=== PATIENT | female | born 2005 | race Caucasian/White ===

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

== ENCOUNTER 2024-12-21 10:50 | Outpatient (CLI) | payer OTHER, SELFPAY ==
--- NOTE | ~2024-12-21 | US_ITS ---
EXAMINATION: US pelvic complete w TV INDICATION: Postcoital and contact bleeding Comparison:No prior studies for comparison. TECHNIQUE: Multiple transabdominal and endovaginal sonographic images of the pelvis performed. FINDINGS: The uterus measures 6.8 x 4 x 3.4 cm. The endometrial complex measures 6 mm. The right ovary measures 3 x 1.9 x 1.5 cm and the left ovary measures 1.8 x 1.4 x 1 cm. There are sm all follicles in each ovary. Normal doppler signal in both ovaries. There is no free fluid in the pelvis. There are no abnormal masses seen on either side. IMPRESSION: 1. Unremarkable pelvic ultrasound. Reviewed, dictated and finalized at location []
== END 2024-12-21 10:51 | disposition home or self-care (01) ==
LOC: MICIMG 10:51
PROVIDERS: PCP Nurse Practitioner Obstetrics & Gynecology; Visit Provider Nurse Practitioner Obstetrics & Gynecology
DX: N93.0 Postcoital and contact bleeding (principal)
CPT/HCPCS: 76830; 76856

== ENCOUNTER 2025-02-03 07:45 | Outpatient (CLI) | payer OTHER, SELFPAY ==
--- OUTSIDE RECORDS SUMMARY | 2025-02-03 07:48 | XMS_ITS | Clinical Summary ---
Author Organization [facility] Address [facility] [place] [address] Care Team Providers Care Medical Physiologist Name Role Phone Petey Rodas MD Primary Care Provider [phone] Source Comments [facility],non-owned Affiliates and Associated Physician Practices is amultiple site organization consisting of ambulatory clinics and hospital sitesin [place], [place], [place] and [place]. This disclosure is being madepursuant to the Care Everywhere program and may not contain all information available regarding this patient. Last updated 18.[facility] Allergies No known active allergies Medications * Be aware that medications may not be up to date on this document. Alwaysverify current medications with the patient. Lutera 0.1-20 MG-MCG tablet Take 1 (one) tablet by mouth once daily 4 Active MELATONIN PO Take 1 tablet by mouth once daily Active desvenlafaxine succinate ER 24hr (Pristiq) 50 MG tablet Take 1 (one) tablet by mouth once daily 5 Active LORazepam (Ativan) 0.5 MG tablet Take 1 (one) tablet by mouth as needed 5 Active propranolol (Inderal) 20 MG tablet Take 1 (one) tablet by mouth as needed 5 Active Zepbound 2.5 MG/0.5ML injection Inject 2.5 (two and one-half) mg subcutaneously every 7 days (once a week) 5 Active Active Problems Problem Noted Date Diagnosed Date Irregular menstruation 07/30/2024 Obesity 07/30/2024 Vitamin D deficiency 07/30/2024 Deviated nasal septum 07/13/2024 Hypertrophy of inferior nasal turbinate 07/13/20 24 Encounters Date Type Department Care Team Description 12/28/2024 2:30 PM CDT Office Visit [facility] - ENT [address] [place] [address] Kory Parker MD Deviated nasal septum (Primary Dx); Hypertrophy of inferior nasal turbinate 12/28/2024 Travel from Last 3 Months Immunizations Immunization Administration Dates Next Due Covid Pfizer primary monoval ent 12+ yr 0.3mL Purple cap 08/05/2021 DTAP/HEP B/IPV 2004,2004,2004 DTAP/IPV 12/18/2009 DTaP VACCINE IM (6wk-6yrs) 01/01/2006 HEP A PED/ADULT VACCINE 05/27/2007,06/02/2006 HEP B VACCINE 2004 HIB VACCINE 08/28/2005, 5,2004,07/10 MENINGOCOCCAL ACWY MENVEO 01/09/2021,02/14/2016 MMR VACCINE 12/18/2009,08/28/2005 PNEUMOCOCCAL PCV7 CONJ, PEDS 08/28/2005, 2004,2004,07/10 TDAP, HISTORIC VACCINE 04/13/2015 VARICELLA 02/06/2016,12/18/2009 Family History Medical History Relation Name Comments Diabetes; unknown type Father Thyroid Disease Mother Relation Name Status Comments Father Mother Social History Tobacco Use Types Packs/Day Years Used Date Smoking Tobacco: Never Passive Smoke Exposure: Never Smokeless Tobacco: Never Alcohol Use Standard Drinks/Week Comments Yes 2 (1 standard drink = 0.6 oz pur e alcohol) Comments No Sex and Gender Information Value Date Recorded Sex Assigned at Not on file Legal Sex Female 2:35 PM CDT Gender Identity Not on file Sexual Orientation Not on file Last Filed Vital Signs Vital Sign Reading Time Taken Comments Blood Pressure 133/86 12/28/2024 2:19 PM CDT Pulse 86 12/28/2024 2:19 PM CDT Temperature - - Respiratory Rate - - Oxygen Saturation - - Inhaled Oxygen Concentration - - Weight 73.5 kg (162 lb) 12/28/2024 2:19 PM CDT Height 172.7 cm (5' 8) 12/28/2024 2:19 PM CDT Body Mass Index 24.63 12/28/2024 2:19 PM CDT Plan of Treatment Upcoming Encounters Date Type Department Care Team (Late st Contact Info) Description 03/08/2025 9:15 AM CDT Office Visit [facility] - ENT [address] [place] [address] Kory Parker MD [address] [facility] [address] [place], [place] [id number] Health Maintenance Due Date Last Done Comments HIV SCREENING 2019 HPV VACCINE (1 - 3-dose series) 2019 CHLAMYDIA/GONORRHEA SCREENING 2020 MENINGOCOCCAL (Group B) VACC INE SHARED DECISION-MAKING (1 of 2 - Standard) 2020 HEPATITIS C SCREENING 05/04/2022 COVID-19 VACCINE (2 - 2023-2 5 season) 2024 08/05/2021 DEPRESSION SCREENING 08/04/2024 INFLUENZA VACCINE (Season Ended) 2025 DTAP/TDAP/TD VACCINES (7 - T d or Tdap) 04/13/2025 04/13/2015, 12/18/2009, 01/01/2006, Additional history exists ZOSTER VACCINE (1 of 2) 2054 HEPATITIS B VACCINE Completed 2004, 2004, 2004, Additional history exists HIB VACCINE Completed 08/28/2005, 01/2005, 2004, Additional history exists PNEUMOCOCCAL VACCINE Completed 08/28/2005, 2004, 2004, Additional history exists MENINGOCOCCAL GROUPS A/C/Y/W VACCINE Completed 01/09/2021, 02/14/2016 Insurance [facility] Care Teams Medical Physiologist Relationship Specialty Start Date End Date Petey Rodas MD [address] [facility] [address] [place] [address] PCP - General Internal Medicine 12/28/24
--- OUTSIDE RECORDS SUMMARY | 2025-02-03 07:48 | XMS_ITS ---
Author Organization [facility] Address [address] [facility] [place] [address] Care Team Providers Care Milk Sampler Name Role Phone Racquel Roth Rupert [phone] REASON FOR VISIT 4 week f/u chase Encounters Encounter Location Date Provider Diagnosis [facility] - Racquel Roth [address] [place] [address] 08/19/2024 Racquel Roth Plan Of Treatment No Information Progress Notes * Demetrius LOMASOB:2005 (19 yo F)Acc No.[id number]:08/19/2024 Progress Notes Patient: Colt HOWELL Provider: Cris Roth MD :2005 A ge:19 Y S ex:Female Date:08/19/2024 Address:[facility] [address] [id number] Subjective: * Chief Complaints: * 1 . 4 week f/u chase. * Medical History: Objective: * Vitals: Assessment: Plan: * Treatment: * Billing Information: * Visit Code: * Procedure Codes: * Electronic signature of Luis Roth MD on 02/03/2025 at 07:48 AM CDT Sign off status: Pending * Provider: Cris Roth MD Date: 08/19/2024 Generated for Juju busby/Lauryn/eTransmitting on: 0 02/03/2025 07:48 AM CDT
--- OUTSIDE RECORDS SUMMARY | 2025-02-03 07:48 | XMS_ITS | Clinical Summary ---
Author Organization [facility] Address [address] [place] [address] Care Team Providers Care Anthropology Lecturer Name Role Phone Lissy Isidro MD Primary Care Pro vider Allergies No known active allergies Medications LARISSIA 0.1-20 mg-mcg per tablet Take 1 tablet by mouth daily 3 08/17/2018 Active FLUoxetine (PROzac) 20 mg capsule Take 1 tablet by mouth daily 08/15/2023 Active lidocaine viscous (XYLOCAINE) 2 % solutionIndicati ons:Sore throat Apply 10 mL to the mouth or throat every 6 (six) hours as needed (sore throat) 100 mL 01/04/2024 Active Active Problems No known active problems Surgical History Surgery Date Site/Laterality Comments BILATERAL TEMPOROMANDIBULAR JOINT ARTHROPLASTY Family History Medical History Relation Name Comments No Known Problems Father Arthritis Maternal Grandfather Family history of arthritis - Relation: Grandfather (Added by TW Conv) Diabetes Maternal Grandfather Family history of diabetes mellitus - Relation: Grandfather (Added by TW Conv) Scoliosis Maternal Grandfather Family history of scoliosis - Relation: Grandfather (Added by TW Conv) No Known Problems Mother Diabetes type II Other 1 Family hist ory of Diabetes mellitus type 2; Gout Other 2 Family history of Gout; Hypertension Other 3 Family history of Hypertension; Stroke Other 4 Family history of Stroke; Cancer Other 5 Family history of Cancer, unknown; Heart disease Other 6 Family history of Heart disease; Arthritis Other 7 Family history of arthritis - Relation: Grandmother (Added by TW Conv) Arthritis Other 8 Family history of arthritis - Relation: Aunt (Added by TW Conv) Scoliosis Other 9 Family history of scoliosis - Relation: Grandmother (Added by TW Conv) Scoliosis Other 10 Family history of scoliosis - Relation: Aunt (Added by TW Conv) Relation Name Status Comments Father Maternal Grandfather Mother Other 1 Other 2 Other 3 Other 4 Other 5 Other 6 Other 7 Other 8 Other 9 Other 10 Social History Tobacco Use Types Packs/Day Years Used Date Smoking Tobacco: Never Smokeless Tobacco: Never Comments Unknown Sex and Gender Information Value Date Recorded Sex Assigned at Not on file 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 Gender Identity Not on file Sexual Orientation Straight 04/02/2021 5: 20 PM CDT Obstetrics History Last Filed Vital Signs Vital Sign Reading Time Taken Comments Blood Pressure 128/88 01/04/2024 8:09 AM CDT Pulse 84 01/04/2024 8:09 AM CDT Temperature 37.2 C (99 F) 01/04/2024 8:09 AM CDT Respiratory Rate 16 01/04/2024 8:09 AM CDT Oxygen Saturation 99% 01/04/2024 8:09 AM CDT Inhaled Oxygen Concentration - - Weight 79.4 kg (175 lb) 01/04/2024 8:09 AM CDT Height 172.7 cm (5' 8) 01/04/2024 8:09 AM CDT Body Mass Index 26.61 01/04/2024 8:09 AM CDT Plan of Treatment Health Maintenance Due Date Last Done Comments Depression Screening 2004 Hepatitis C Screening 2004 HPV Vaccines (1 - 3-dose series) 2019 Meningococcal B Vaccine (1 o f 2 - Standard) 2020 Regular Well Visit/Exam 18-64 2022 Covid-19 Vaccine (2 - 2023-2 5 season) 2024 08/05/2021 Influenza Vaccine (#1) 2025 DTaP/Tdap/Td Vaccine (7 - Td or Tdap) 04/13/2025 04/13/2015, 12/18/2009, 01/01/2006, Additional history exists Hepatitis B Screening Completed 2004 , 2004, 2004, Additional history exists Pneumococcal vaccine <65 Completed 006, 2004, 2004, Additional history exists Varicella Vaccines Completed 02/06/2016, 12/18/2009 Meningococcal Vaccine Completed 01/09/2021, 016 Insurance [facility] PL[facility] [address] [phone] [facility] PLUS [place] [phone] [facility] PL[facility] Care Teams Anthropology Lecturer Relationship Specialty Start Date End Date Lissy Isidro MD PCP - General 11/12/16
--- OUTSIDE RECORDS SUMMARY | 2025-02-03 07:48 | XMS_ITS | Patient Health Record ---
Author Organization [employer] [facility] Address [address] [address] Care Team Providers Care City Dispatcher Name Role Phone Racquel Roth [phone] Allergies No Known Allergies Results Component Value Reference Range Notes COMPREHENSIVE METABOLIC PANE L Reviewed date:07/30/2024 05:37:23 PM Interpretation: Performing Lab:JOHN, [facility], [address], [place], [address] Adriel Guerrero Notes/Report: VITAMIN D, 25-HYDROXY, LC/MS /MS Reviewed date:07/30/2024 05:37:23 PM Interpretation: Performing Lab:KS, [facility], [address] [place], [address] Adriel Guerrero MD Notes/Report: ACTH, PLASMA Reviewed date:08/01/2024 11:58:11 AM Interpretation: Performing Lab:JUAN, [facility], [address], [place], [address] Misael Hurtado M.D.,PhD Notes/Report: T3, FREE Reviewed date:07/30/2024 05:37:23 PM Interpretation: Performing Lab:KS, [facility], [address] [place], [address] Adriel Guerrero MD Notes/Report: DHEA SULFATE Reviewed date:07/30/2024 05:37:23 PM Interpretation: Performing Lab:KS, [facility], [address], [address] Adriel Guerrero MD Notes/Report: ESTRADIOL Reviewed date:07/30/2024 05:37:23 PM Interpretation: Performing Lab:JOHN, [facility], [address] [place], [address] Adriel Guerrero Notes/Report: FSH Reviewed date:07/30/2024 05:37:23 PM Interpretation: Performing Lab:KS, [facility], [address], [place], [address] Adriel Guerrero MD Notes/Report: MAGNESIUM Reviewed date:07/30/2024 05:37:23 PM Interpretation: Performing Lab:JOHN, [facility], [address] [place], [address] Adriel Guerrero Notes/Report: CBC (INCLUDES DIFF/PLT) Reviewed date:07/30/2024 05:37:23 PM Interpretation: Performing Lab:JOHN, [facility], [address] [place], [address] Adriel Guerrero Notes/Report: VITAMIN B12/FOLATE, SERUM PA BRENT Reviewed date:07/30/2024 05:37:23 PM Interpretation: Performing Lab:KS, [facility], [address], [place], [address] Adriel Guerrero MD Notes/Report: PROGESTERONE Reviewed date:07/30/2024 05:37:23 PM Interpretation: Performing Lab:JOHN, [facility], [address] [place], [address] Adriel Guerrero Notes/Report: IRON AND TOTAL IRON BINDING CAPACITY Reviewed date:07/30/2024 05:37:23 PM Interpretation: Performing Lab:KS, [facility], [address], [place], [address] Adriel Guerrero MD Notes/Report: T4, FREE Reviewed date:07/30/2024 05:37:23 PM Interpretation: Performing Lab:SL, [facility], [address] [place], [address] Adriel Guerrero Notes/Report: TSH Reviewed date:07/30/2024 05:37:23 PM Interpretation: Performing Lab:SL, [facility], [address], [place], [address] Adriel Guerrero Notes/Report: THYROID PEROXIDASE ANTIBODIE S Reviewed date:07/30/2024 05:37:23 PM Interpretation: Performing Lab:CB, [facility], [address] [place], [address] Mo Nunez Notes/Report: THYROID PEROXIDASE ANTIBODIES <1 <9 IU/mL DEXAMETHASONE Reviewed date:08/08/2024 12:35:39 PM Interpretation: Performing Lab:[facility],, [address] [place], [address] Lucie Solis MD,PhD,[facility] Notes/Report: DEXAMETHASONE 298 Reference Ranges for Dexamethasone: Baseline: Less than 20 ng/dL 1 mg dexamethasone overnight: 180-550 ng/dL (8:00-10:00 AM) This test was developed and its analytical performance characteristics have been determined by [employer]. It has not been cleared or approved by FDA. This assay has been validated pursuant to the CLIA regulations and is used for clinical purposes. CORTISOL, TOTAL Reviewed date:07/30/2024 05:32:51 PM Interpretation: Performing Lab:ZOILA [facility], [address] [place], [address] Adriel Guerrero MD Notes/Report: Reason For Referral No Information Medications Medication SIG (Take, Route, Fr equency, Duration) Notes Start Date End Date Status Synthroid 25 MCG 1 tablet in the morn ing on an empty stomach Orally Once a day for 30 days 08/13/2024 Active FLUoxetine HCl Activ e Melatonin 10 MG as directed Orally Active Zepbound 2.5 MG/0.5ML 0.5 mL Subcutaneou s weekly for 30 days 07/21/2024 Active Problems Problem Type SNOMED Code ICD Code Onset Dates Problem Status W/U Status Risk Notes Problem Vitamin D deficiency (31632007) Vitamin D deficiency, unspecified (E55.9) Active confirmed Problem Hypothyroidism (47693636) Hypothyroidism, unspecified (E03.9) Active confirmed Problem Obesity (948988409) Obesity, unspecified (E66.9) Active confirmed Problem Autoimmune thyroiditis (15379121) Autoimmune thyroiditis (E06.3) Active confirmed Problem Irregular menstruation (51087383) Irregular menstruation, unspecified (N92.6) Active confirmed Vital Signs Heart Rate 70 /min 08/13/2024 Blood pressure diastolic 82 mm Hg 08/13/2024 Height 68 in 08/13/2024 Blood pressure systolic 120 mm Hg 08/13/2024 Weight 185 lbs 08/13/2024 BMI 28.13 kg/m2 08/13/2024 Encounters Encounter Location Date Provider Diagnosis [facility] - [facility] [employer] [address] [place] [address] 07/21/2024 Racquel Roth Other fatigue R53.83 ; Abnormal weight gain R63.5 ; Irregular menstruation, unspecified N92.6 ; Vitamin D deficiency, unspecified E55.9 ; Obesity, unspecified E66.9 and Dietary counseling and surveillance Z71.3 [facility] [address] [place] [address] 07/21/2024 Racquel [facility] - [facility] [employer] [address] [place] [address] 08/12/2024 Racquel [facility] - [facility] [employer] [address] [place] [address] 08/13/2024 Racquel Roth [facility] [address] [place] [address] 08/13/2024 Racquel Roth [facility] [address] [place] [address] 08/13/2024 Racquel Roth [facility] - [facility] [employer] [address] [place] [address] 09/06/2024 Racquel Roth Obesity, unspecified E66.9 [facility] - [facility] [employer] [address] [place] [address] 08/13/2024 Racquel Roth Hypothyroidism, unspecified E03.9 ; Autoimmune thyroiditis E06.3 ; Overweight E66.3 and Dietary counseling and surveillance Z71.3 Assessments Encounter Date Diagnosis (ICD Code) Assessment Notes Treatment Notes Treatment Clinical Notes Section Notes 07/21/2024 Other fatigue (ICD-10 - R53.83) 07/21/2024 Abnormal weight gain (ICD-10 - R63.5) 09/06/2024 Obesity, unspecified (ICD-10 - E66.9) 08/13/2024 Hypothyroidism, unspecified (ICD-10 - E03.9) 08/13/2024 Autoimmune thyroiditis (ICD-10 - E06.3) 07/21/2024 Irregular menstruation, unspecified (ICD-10 - N92.6) 08/13/2024 Overweight (ICD-10 - E66.3) 07/21/2024 Vitamin D deficiency, unspecified (ICD-10 - E55.9) 08/13/2024 Dietary counseling and surveillance (ICD-10 - Z71.3) 07/21/2024 Obesity, unspecified (ICD-10 - E66.9) 07/21/2024 Dietary counseling and surveillance (ICD-10 - Z71.3) 07/21/2024 Other Assessment and Plan: 1. High cortisol levels- Patient presented with high cortisol levels from previous blood work. The patient is currently on control, which may cause false positives on cortisol levels.- Plan: Discontinue control for 3 weeks and repeat blood work to assess cortisol levels. Consider dexamethasone suppression test if necessary. 2. Chronic fatigue since 2019- Patient reports chronic fatigue since 2019. Previous thyroid blood work was reportedly normal.- Plan: Perform a more in-depth thyroid assessment, including thyroid antibodies, to evaluate for potential thyroid dysfunction. 3. Weight gain and difficulty losing weight- Patient reports a weight gain of approximately 15 pounds and difficulty losing weight despite exercise and meal prepping.- Plan: Consider semaglutide or tirzepatide for weight loss management, pending insurance coverage and lab results. Encourage a diet rich in protein and fiber, with a daily caloric intake of 1678-8136 calories. Advise the patient to avoid gluten, carbs, and processed foods. 4. Menstrual irregularities- Patient is on control for heavy menstrual cycles.- Plan: Continue control as needed for menstrual regulation, but discontinue temporarily for cortisol assessment. 5. Anxiety- Patient reports a history of anxiety.- Plan: Monitor and address anxiety as needed during follow-up visits. Follow-up:- Schedule a follow-up appointment in 3 weeks to review lab results and discuss potential weight loss management options. Spent 15 minutes preventative counseling patient on dietary recommendations and changes in setting of hyperglycemia- need to restrict refined sugars and processed foods and incorporate up to 150 minutes of moderate level activity weekly. Spent 45 minutes preparing to see the patient (ex review of tests/chart), obtaining and / or reviewing separately obtained history, performing a medically appropriate examination and/or evaluation, counseling and educating the patient/family/caregive r, ordering medications, tests, or procedures, referring and communicating with other health patient care manager, documenting clinical information in the electronic or other health record, independently interpreting results and communicating results to the patient/family/caregive r and care coordinating patient plan. Patient alert and oriented x 4 and aware of discussion noted above and in agreeance to plan in management of other fatigue, weight gain/irregular cycles, vitamin D def and weight management. 08/13/2024 Other Assessment and Plan: Borderline Thyroid FunctionPatient reports fatigueRecommend starting with Purely Holistic thyroid support supplement, available on [employer], initiate low dose Synthroid or Unithroid. Prescription to be sent to [facility] with insurance coverage checked. If not covered, inform patient about Synthroid delivers at $25/monthRepeat thyroid testing in 6 weeks Low Iron StoresIron saturation measured at 14%, below the normal threshold of 16%Advise taking a multivitamin with iron to improve iron stores Low ProgesteronePatient experiences irritability and mood swings before menstrual cyclesFocus on optimizing thyroid function due to its close relationship with progesterone. Monitor symptoms and consider further evaluation if symptoms persist Vitamin D InsufficiencyVitamin D level recorded at 38Recommend daily intake of 1,000-2,000 IUs of Vitamin D during winter months for immune and bone health Weight Loss and Glucose ManagementPatient expresses interest in tirzepatideDiscuss tirzepatide options, including costs and potential side effects. If patient agrees, proceed with consent and provide usage instructions. Recommend a daily calorie intake of 0527-8387 calories based on activity level. Monitor weight and glucose levels at follow-up She will come in next week to start on 2.5 mg tirzepatide shots through weight loss program-will need to sign consent. Follow-up:Schedule a follow-up appointment in one month to review progress and adjust treatment plan as necessaryEncourage patient to report any new or worsening symptoms Spent 25 minutes preparing to see the patient (ex review of tests/chart), obtaining and / or reviewing separately obtained history, performing a medically appropriate examination and/or evaluation, counseling and educating the patient/family/caregive r, ordering medications, tests, or procedures, referring and communicating with other health patient care manager, documenting clinical information in the electronic or other health record, independently interpreting results and communicating results to the patient/family/caregive r and care coordinating patient plan. Patient alert and oriented x 4 and aware of discussion noted above and in agreeance to plan in management of hypothyroidism, vit D def, B12 def/ELIZABETH and weight management. Due to the nature of telemedicine, the ability to do physical assessment was limited to what can be accomplished by patient directed telehealth visit based on instruction. Those limits are understood by the patient and myself. Impression is based on history, available information, and physical findings accomplished with telehealth visit. Chronic disease/problem list/ medication list reviewed and updated where indicated. Discussed diagnosis, plan including risks, benefits, and options of treatment. Advised to call for new, worsening, or persistent symptoms. Level of patient risk was of moderate complexity due to the documented nature of presentation, the information assessment required and the nature of the development of an evaluation and treatment plan as documented. PMH, FHx, SHx, Surgical Hx, Quality management review carried out and addressed as documented today as part of this visit. Medication list was reviewed and adjusted as indicated. Medication requiring a refill was addressed. Risk and benefits of any new medications were discussed and all questions were answered. Plan Of Treatment No Information Insurance Providers Payer Name Payer Address Payer Phone Subscriber Number Group Number Insured Name Patient Relationship to Insured Coverage Start Date Coverage End Date [facility] [address] [place] [phone] [id number] Colt Sylvester Self - patient is the insured Medical (General) History Medical History History ICD Code high cortisol weight gain Surgical History Surgery Date(Month/Year) athrosynthesis (jaw) 2020
--- OUTSIDE RECORDS SUMMARY | 2025-02-03 07:48 | XMS_ITS | Data Portability ---
Author Organization [place] [facility],[place]- Address # [address] [place] [address] Care Team Providers [employer] Name Role Phone LISSY ISIDRO Primary Care Provider Assessment Encounter Date Assessment Date Assessment LastModified by Organization Details LastModified Time 07/02/2022 07/02/2022 This visit was performed virtually using synchronous audio-visual connection due to the COVID [facility] Emergency with verbal consent granted by parent/patient . As such, the physical examination is necessarily limited. The risks and benefits involved in the use of this alternative visit method have been discussed with the parent. My assessment and plans are based on such examination. Further evaluation, including in-person examination, may be needed depending on the response to management. During the visit I was located at my office and the patient was located at their residence. The time spent for this encounter was _9_ minutes. [email or web address] Not available 07/02/2022 19:42:42 08/14/2022 08/14/2022 Due to the COVID-19 public health emergency, additional clinical staff time was required to screen this patient and parent(s) for COVID exposure and/or COVID related symptoms. Additional time was also spent sanitizing the exam room after the patient was seen in order to prevent the possible spread of COVID. Not available 08/14/2022 15:48:19 06/05/2023 06/05/2023 This visit was performed virtually using synchronous audio-visual connection with verbal consent granted by parent/patient . As such, the physical examination is necessarily limited. The risks and benefits involved in the use of this alternative visit method have been discussed with the parent. My assessment and plans are based on such examination. Further evaluation, including in-person examination, may be needed depending on the response to management. During the visit I was located at my home and the patient was located at their residence. kevin Not available 06/06/2023 13:24:30 Plan of Treatment Reminders Order Date Submit Date Provider Last Modified By Organization Details Last Modified Time Details Appointments None recorded. Lab urinalysis , dipstick 2023 024 [email or web address] [facility], [address], [place], [address], 4 15:19:09 CT + NG DNA, PCR, urine 2023 024 [email or web address] [facility], [address], [place], [address], 4 10:29:58 urinalysis , dipstick 2022 023 [facility], [address], [place], [address], 3 14:50:18 Referral None recorded. Procedures None recorded. Surgeries None recorded. Imaging None recorded. Medication Orders Lutera (28) 0.1 mg-[address] [facility]acy #[id number], [address] [place], [address], 4 15:19:17 fluoxetine 10 mg capsule [address] [facility][id number], [address] [place], [address], 4 15:19:19 fluoxetine 20 mg capsule [address] [facility][id number], [address] [place], [address], 4 15:19:18 fluoxetine 20 mg capsule [address] [facility] [id number], [address], 3 13:26:48 fluoxetine 10 mg capsule [address] [facility] [id number] In [facility], [address] [place] [address], [address], 3 13:26:48 venlafaxin e ER 75 mg capsule,ex tended release 24 hr 2022 023 [facility]/Pharmacy #[id number], [address] [place], [address], 4 15:00:37 Patient TargetsNo targets recorded. Patient Instructions Encounter Date Encounter Id Patient Instructions Last Modified By Organization Details Last Modified Time 07/02/2022 [id number] patient health questionnaire depression assessment* [email or web address] Not available 07/02/2022 19:45:03 screen for child anxiety-related emotional disorders* [email or web address] Not available 07/02/2022 19:45:03 GUILLERMINA-7 anxiety scale* kwuellner Not available 07/02/2022 19:45:03 .kar spent: wit h parent and patient: 9 minutes reviewing data: 4minutes documenting the visit 10 minutes keenan Not available 07/02/2022 19:45:42 08/14/2022 [id number] anticipatory guidance 18-19 years kwbita Not available 08/15/2022 14:50:18 munira FLOWER e abuse screening for adolescents* kwbita Not available 08/15/2022 14:50:18 patient health questionnaire depression assessment* kwbita Not available 08/15/2022 14:50:18 01/16/2023 [id number] Instructions 1. Take medication(s) exactly as prescribed. 2. Never stop taking your medicine on your own--it can lead to serious problems. 3. Strongly consider speaking with a counselor. 4. Tell someone if you have any thoughts of self harm. 5. Contact our office with any concerns. 6. Follow up in month(s). Goals 1. Improved socialization at school, work, and/or with family. 2. Always go to school unless you are truly unable. 3. Always maintain normal sleep time patterns. [email or web address] Not available 01/16/2023 11:26:43 Total time spent for visit: 28 _ minutes on the day of the visit. The time spent includes time in preparing for the patient, reviewing prior visits, obtaining current history, problem focused exam, reviewing appropriate screening questionnaires pertaining to the visit, ordering medications, documenting this visit in the medical record, as well as the assessment and plan discussion as a result of today's visit with the patient and family. [email or web address] Not available 01/16/2023 14:39:55 06/05/2023 [id number] patient health questionnaire depression assessment* kwuellner Not available 06/06/2023 13:26:48 GUILLERMINA-7 anxiety scale* kwuellner Not available 06/06/2023 13:26:49 06/28/2024 [id number] anticipatory guidance 18-21 years Not available 06/28/2024 15:19:09 patient health questionnaire depression assessment* Not available 06/28/2024 15:19:09 Reason for Referral None Reported. Results Created Date Observation Date Name Description Value Unit Range Abnormal Flag Note LastModifiedBy Organization Detail LastModifiedTime 07/02/20 22 07/02/2022 scree n for child anxie ty-re lated emoti onal disor ders* Unknown Analyte 10 Not Available [facility] [employer] [address] [facility] [address], [place], [address], 07/02/2022 17:26:31 07/02/20 22 07/02/2022 scree n for child anxie ty-re lated emoti onal disor ders* Unknown Analyte normal Not Available [facility] [employer] [address] [facility] [address], [place], [address], 07/02/2022 17:26:31 07/02/20 22 07/02/2022 scree n for child anxie ty-re lated emoti onal disor ders* Unknown Analyte 2 Not Available [facility] [employer] [address], [place], [address], 07/02/2022 17:26:31 07/02/20 22 07/02/2022 scree n for child anxie ty-re lated emoti onal disor ders* Unknown Analyte normal Not Available [facility] [address] [facility] [address], [place], [address], 07/02/2022 17:26:31 07/02/20 22 07/02/2022 scree n for child anxie ty-re lated emoti onal disor ders* Unknown Analyte 8 Not Available [facility] [address] [facility] [address], [place], [address], 07/02/2022 17:26:31 07/02/20 22 07/02/2022 scree n for child anxie ty-re lated emoti onal disor ders* Unknown Analyte normal Not Available [facility] [address] [facility] [address], [place], [address], 07/02/2022 17:26:31 07/02/20 22 07/02/2022 scree n for child anxie ty-re lated emoti onal disor ders* Unknown Analyte 0 Not Available [facility] [address] [facility] [address], [place], [address], 07/02/2022 17:26:31 07/02/20 22 07/02/2022 scree n for child anxie ty-re lated emoti onal disor ders* Unknown Analyte normal Not Available [facility] [address] [facility] [address], [place], [address], 07/02/2022 17:26:31 07/02/20 22 07/02/2022 scree n for child anxie ty-re lated emoti onal disor ders* Unknown Analyte 0 Not Available [facility] [address] [facility] [address], [place], [address], 07/02/2022 17:26:31 07/02/20 22 07/02/2022 scree n for child anxie ty-re lated emoti onal disor ders* Unknown Analyte normal Not Available [facility] [address] [facility] [address], [place], [address], 07/02/2022 17:26:31 07/02/20 22 07/02/2022 scree n for child anxie ty-re lated emoti onal disor ders* Unknown Analyte 0 Not Available [facility] [address] [facility] [address], [place], [address], 07/02/2022 17:26:31 07/02/20 22 07/02/2022 scree n for child anxie ty-re lated emoti onal disor ders* Unknown Analyte normal Not Available [facility] [address] [facility] [facility] [address], [place], [address], 07/02/2022 17:26:31 07/02/20 22 07/02/2022 GUILLERMINA-7 anxie ty scale * Score: 2 Not Available In-Office Order Internal Use Only DO Not Attach Compendium DO Not Attach Compendium, Do Not Delete/merge, 07/02/2022 17:26:31 07/02/20 22 07/02/2022 GUILLERMINA-7 anxie ty scale * Interpretati on: Minima l anxiet y Not Available In-Office Order Internal Use Only DO Not Attach Compendium DO Not Attach Compendium, Do Not Delete/merge, 07/02/2022 17:26:31 07/02/20 22 07/02/2022 GUILLERMINA-7 anxie ty scale * Recommendati on Normal GUILLERMINA-7 Score; no furthe r treatm ent requir ed. Not Available In-Office Order Internal Use Only DO Not Attach Compendium DO Not Attach Compendium, Do Not Delete/merge, 07/02/2022 17:26:31 07/02/20 22 07/02/2022 patie nt healt h quest ionna adelso depre ssion asses sment * SCORE: 1 Not Available [facility] [address] [place] [address] [address], [place], [address], 07/02/2022 17:26:30 08/14/19 23 08/15/2022 CHLAM YDIA/ N. GONOR RHOEA E RNA, TMA, UROGE NITAL chlamydia trachomatis RNA, tma, urogenital NOT DETECT ED not detect ed normal Not Available [facility] [place] [address] [place], [address], 08/15/2022 17:20:50 08/14/19 23 08/15/2022 CHLAM YDIA/ N. GONOR RHOEA E RNA, TMA, UROGE NITAL neisseria gonorrhoeae RNA, tma, urogenital NOT DETECT ED not detect ed normal Not Available [facility] [place] [address] [place], [address], 08/15/2022 17:20:50 08/14/19 23 08/15/2022 CHLAM YDIA/ N. GONOR RHOEA E RNA, TMA, UROGE NITAL comment The janet tical perfo rmanc e js cteri stics of this assay , when used to test SureP ath(T M) speci mens have been deter mined by [facility]. The modif icati ons have not been clear ed or appro huy by the FDA. This assay has been valid ated pursu ant to the CLIA regul ation s and is used for clini phil purpo ses. For addit ional infor azam marks e refer to https ://ed ucati on.qu estdi [employer] tics. com/f aq/FA Q154 (This link is being provi ded for infor jt fierro/ maged shell l purpo ses only. ) Not Available [facility] [place] [address] [place], [address], 08/15/2022 17:20:50 08/14/19 23 08/14/2022 urina lysis , dipst ick Specific Chireno 1.020 Not Available [address], [place], [address], 08/14/2022 15:48:20 08/14/19 23 08/14/2022 urina lysis , dipst ick pH 7.0 Not Available [facility] [address] [facility] [address], [place], [address], 08/14/2022 15:48:20 08/14/19 23 08/14/2022 urina lysis , dipst ick Leukocytes Modera te Not Available [facility] [address] [facility] [address], [place], [address], 08/14/2022 15:48:20 08/14/19 23 08/14/2022 urina lysis , dipst ick Nitrite negati ve Not Available [facility] [address] [facility] [place], [address], 08/14/2022 15:48:20 08/14/19 23 08/14/2022 urina lysis , dipst ick Urobilinogen .2 Not Available [facility] [address] [facility] [address], [place], [address], 08/14/2022 15:48:20 08/14/19 23 08/14/2022 urina lysis , dipst ick Protein Negati ve Not Available [facility] [address] [facility] [address], [place], [address], 08/14/2022 15:48:20 08/14/19 23 08/14/2022 urina lysis , dipst ick Blood Negati ve Not Available [facility] [address] [facility] [address], [place], [address], 08/14/2022 15:48:20 08/14/19 23 08/14/2022 urina lysis , dipst ick Ketone Negati ve Not Available [facility] [address] [facility] [place], [address], 08/14/2022 15:48:20 08/14/19 23 08/14/2022 urina lysis , dipst ick Bilirubin Negati ve Not Available [facility] [address] [facility] [place], [address], 08/14/2022 15:48:20 08/14/19 23 08/14/2022 urina lysis , dipst ick Glucose Negati ve Not Available [facility] [address] [facility] [address], [place], [address], 08/14/2022 15:48:20 08/14/19 23 08/14/2022 urina lysis , dipst ick Appearance Clear Not Available [facility] [address] [facility] [address], [place], [address], 08/14/2022 15:48:20 08/14/19 23 08/14/2022 urina lysis , dipst ick Color Yellow Not Available [facility] [address] [facility] [address], [place], [address], 08/14/2022 15:48:20 08/15/19 23 08/15/2022 patie nt healt h quest ionna adelso depre ssion asses sment * SCORE: 0 Not Available [facility] [address] [facility] [address], [place], [address], 08/14/2022 15:48:21 08/15/19 23 08/15/2022 patie nt healt h quest ionna adelso depre ssion asses sment * RECOMMENDATI ONS: NORMAL PHQ-9 SCORE, NO FURTHE R TREATM ENT REQUIR ED Not Available [facility] [address] [facility] [address], [place], [address], 08/14/2022 15:48:21 08/15/19 23 08/15/2022 CRAFF T, subst ance abuse scree leticia for adole scent s* Recommendati ons: Discus sed the failed screen ing with patien t Not Available [facility] [address] [facility] [address], [place], [address], 08/14/2022 15:48:21 06/05/20 23 06/05/2023 GUILLERMINA-7 anxie ty scale * Score: 7 Not Available In-Office Order Internal Use Only DO Not Attach Compendium DO Not Attach Compendium, Do Not Delete/merge, [id number] 06/05/2023 11:04:16 06/05/20 23 06/05/2023 GUILLERMINA-7 anxie ty scale * Interpretati on: Mild anxiet y Not Available In-Office Order Internal Use Only DO Not Attach Compendium DO Not Attach Compendium, Do Not Delete/merge, [id number] 06/05/2023 11:04:16 06/05/20 23 06/05/2023 GUILLERMINA-7 anxie ty scale * Recommendati on Normal GUILLERMINA-7 Score; no furthe r treatm ent requir ed. Not Available In-Office Order Internal Use Only DO Not Attach Compendium DO Not Attach Compendium, Do Not Delete/merge, [id number] 06/05/2023 11:04:16 06/05/20 23 06/05/2023 patie nt healt h quest ionna adelso depre ssion asses sment * SCORE: 4 Not Available [facility] [address] [facility] [address], [place], [address], 06/05/2023 11:00:43 06/05/20 23 06/05/2023 patie nt healt h quest ionna adelso depre ssion asses sment * RECOMMENDATI ONS: NORMAL PHQ-9 SCORE, NO FURTHE R TREATM ENT REQUIR ED Not Available [facility] [address] [facility] [address], [place], [address], 06/05/2023 11:00:43 06/28/20 24 06/29/2024 CHLAM YDIA/ N. GONOR RHOEA E RNA, TMA, UROGE NITAL chlamydia trachomatis RNA, tma, urogenital NOT DETECT ED not detect ed normal Not Available [address], [address], 06/29/2024 18:53:49 06/28/2006/29/2024 CHLAM YDIA/ N. GONOR RHOEA E RNA, TMA, UROGE NITAL neisseria gonorrhoeae RNA, tma, urogenital NOT DETECT ED not detect ed normal Not Available [facility] [address] [place], [address], 06/29/2024 18:53:49 06/28/20 24 06/29/2024 MILADIS JAMIL/ N. GONOR RHOEA E RNA, TMA, UROGE NITAL comment The janet tical perfo rmanc e js cteri stics of this assay , when used to test SureP ath(T M) speci mens have been deter mined by [employer] [facility]. The modif icati ons have not been clear ed or appro huy by the FDA. This assay has been valid ated pursu ant to the CLIA regul ation s and is used for clini phil purpo ses. For addit ional meenar azam marks e refer to https ://ed ucati on.qu estMobilinga. Massive Damage/f aq/FA Q154 (This link is being provi ded for infor jt fierro/ maged shell l purpo ses only. ) Not Available [facility] [address] [address], [place], [address], 06/29/2024 18:53:49 06/28/20 24 06/28/2024 urina lysis , dipst ick Specific Chireno 1.025 Not Available [facility] [address] [facility] [address], [place], [address], 06/18/2024 17:09:22 06/28/20 24 06/28/2024 urina lysis , dipst ick pH 5.5 Not Available [facility] [address] [facility] [address], [place], [address], 06/18/2024 17:09:22 06/28/20 24 06/28/2024 urina lysis , dipst ick Leukocytes Negati ve Not Available [facility] [address] [facility] [address], [place], [address], 06/18/2024 17:09:22 06/28/20 24 06/28/2024 urina lysis , dipst ick Nitrite negati ve Not Available [facility] [address] [facility] [address], [place], [address], 06/18/2024 17:09:22 06/28/20 24 06/28/2024 urina lysis , dipst ick Urobilinogen .2 Not Available [facility] [address] [facility] [address], [place], [address], 06/18/2024 17:09:22 06/28/20 24 06/28/2024 urina lysis , dipst ick Protein Negati ve Not Available [facility] [address] [facility] [address], [place], [address], 06/18/2024 17:09:22 06/28/20 24 06/28/2024 urina lysis , dipst ick Blood Negati ve Not Available [facility] [address] [facility] [address], [place], [address], 06/18/2024 17:09:22 06/28/20 24 06/28/2024 urina lysis , dipst ick Ketone Negati ve Not Available [facility] [address] [facility] [address], [place], [address], 06/18/2024 17:09:22 06/28/20 24 06/28/2024 urina lysis , dipst ick Bilirubin Negati ve Not Available [facility] [address] [facility] [address], [place], [address], 06/18/2024 17:09:22 06/28/20 24 06/28/2024 urina lysis , dipst ick Glucose Negati ve Not Available [facility] [address] [facility] [address], [place], [address], 06/18/2024 17:09:22 06/28/20 24 06/28/2024 urina lysis , dipst ick Appearance Clear Not Available [facility] [address] [facility] [address], [place], [address], 06/18/2024 17:09:22 06/28/20 24 06/28/2024 urina lysis , dipst ick Color Yellow Not Available [facility] [address] [facility] [address], [place], [address], 06/18/2024 17:09:22 06/28/20 24 06/28/2024 patie nt healt h quest ionna adelso depre ssion asses sment * SCORE: 3 Not Available [facility] [address] [place] [address] [address], [place], [address], 06/18/2024 17:09:23 06/28/20 24 06/28/2024 patie nt healt h quest ionna adelso depre ssion asses sment * RECOMMENDATI ONS: NORMAL PHQ-9 SCORE, NO FURTHE R TREATM ENT REQUIR ED Not Available [facility] [address] [place] [address] [address], [place], [address], 06/18/2024 17:09:23 05/28/20 23 05/28/2023 brett repor t GAD7 RESULT : Mild anxiet y (Score : 7) PHQ9 RESULT : Minima l Sympto ms (0 - 4) (Score : 4) PHQ9 SUICID ALITY: Negati ve INTERFACE [facility] [address] [place] [address] [address], [place], [address], 05/28/2023 10:42:10 Result Notes None recorded. Problems Name Problem SNOMED Code Status Onset Date Resolution Date Notes Provider Name and Address Organization Details Recorded Time Mixed anxiety and depressiv e disorder 124108425 Active 2023 LUIS CARLOS GAVIRIA [address], [address] , [facility], 4 15:14:13 Fever [id number] Completed 04/26/2016 Brant Khan [place], [place] - [facility], 8 10:37:19 Acute upper respirato ry infection 10408454 Completed 04/26/2016 Michelle Glasgow MD [address] [place] [address], [address] , [facility], 6 14:40:40 Chronic sinusitis 21644258 Completed 04/26/2016 Michelle Glasgow MD [address] [place] [address], [address] , [facility], 6 14:40:34 Nausea and vomiting 09340568 Completed 04/26/2016 Michelle Glasgow MD [address] [place] [address], [address] , [facility], 6 14:40:23 Hypertrop hic scar 15278388 Active Not Available [facility] 2 10:00:44 Influenza caused by Influenza B virus 38314376 Completed 04/26/2016 Michelle Glasgow MD [address] [place] [address], [phone] , [facility], 6 14:40:28 Scoliosis deformity of spine 842298400 Active Not Available [facility] 2 10:00:44 Near syncope 981643286 Completed 09/02/2017 [facility] 8 10:37:22 Influenza [id number] Completed 04/26/2016 Michelle Glasgow MD [address] [place] [address], [phone] , [facility], 6 14:40:37 Follow-up visit Completed 04/26/2016 Michelle Glasgow MD [address] [place] [address], [phone] , [facility], 6 14:40:25 Muscle spasm of cervical muscle of neck [id number] 4 Completed 09/02/2017 [place] [facility], 8 10:37:17 Fever [id number] Completed 201509/02/2017 Brant you, [place] - [facility], 8 10:37:19 Problem Notes None recorded. Medical Equipment None Reported. Allergies No known drug allergies Medications Name Sig Start Date Stop Date Status Note LastModified by Organization Details LastModified Time Dehistine 2 mg-10 mg-1.25 mg/5 mL oral solution active Not Available Not Available Not Available buspirone 5 mg tablet TAKE 1 TABLET BY MOUTH EVERYDAY AT BEDTIME 07/02 completed Not Available Not Available Not Available venlafaxi ne ER 75 mg capsule,e xtended release 24 hr TAKE 1 CAPSULE BY MOUTH EVERY DAY 06/28 completed Not Available Not Available Not Available azithromy shea 250 mg tablet TAKE 2 TABLETS BY MOUTH TODAY, THEN TAKE 1 TABLET DAILY FOR 4 DAYS 12/13 completed Not Available Not Available Not Available fluconazo le 150 mg tablet TAKE 1 TABLET BY MOUTH EVERY DAY 06/28 completed Not Available Not Available Not Available amoxicill in 600 mg-potass ium clavulana te 42.9 mg/5 mL oral suspensio n Take 10 mL twice a day by oral route for 7 days. 07/17 completed Not Available Not Available Not Available clarithro mycin 500 mg tablet Take 1 tablet twice a day by oral route for 10 days. 10/15 completed Not Available Not Available Not Available sucralfat e 100 mg/mL oral suspensio n 03/14 completed Not Available Not Available Not Available sucralfat e 1 gram tablet 03/14 completed Not Available Not Available Not Available promethaz ine 12.5 mg tablet active Not Available Not Available No t Available metronida zole 0.75 % (37.5 mg/5 gram) vaginal gel 04/26 completed Not Available Not Available Not Available ondansetr on HCl 4 mg tablet TAKE 1 CAPSULE BY MOUTH EVERY 4 TO 6 HOURS NEEDED 03/14 completed Not Available Not Available Not Available prednison e 20 mg tablet Take 3 tablets every day by oral route for 5 days. 10/15 completed Not Available Not Available Not Available fluoxetin e 10 mg tablet 1 tab po daily 01/16 completed Not Available Not Available Not Available sertralin e 100 mg tablet Take 1.5 tablets every day by oral route for 90 days. 03/14 completed Not Available Not Available Not Available terconazo le 0.8 % vaginal cream INSERT 1 APPLICAT ORFUL VAGINALL Y EVERY DAY AT BEDTIME FOR 3 DAYS 06/28 completed Not Available Not Available Not Available clonazepa m 1 mg tablet TAKE 1/2 TO 1 TABLET BY MOUTH AT BEDTIME 07/02 completed Not Available Not Available Not Available penicilli n V potassium 500 mg tablet TAKE 1 TABLET BY MOUTH TWICE A DAY FOR 10 DAYS 06/28 completed Not Available Not Available Not Available metronida zole 500 mg tablet Take 1 tablet twice a day by oral route for 7 days. 02/27 completed Not Available Not Available Not Available oxycodone -acetamin ophen 5 mg-325 mg tablet active Not Available Not Available Not Available alprazola m 0.5 mg tablet 03/14 completed Not Available Not Available Not Available amoxicill in 875 mg tablet 10/15 completed Not Available Not Available Not Available lorazepam 0.5 mg tablet PLEASE SEE ATTACHED FOR DETAILED DIRECTIO NS active Not Available Not Available No t Available dexametha sone 1 mg tablet active Not Available Not Available Not Available doxycycli ne monohydra te 100 mg capsule 06/28 completed Not Available Not Available Not Available cephalexi n 500 mg capsule active Not Available Not Available Not Available oseltamiv ir 75 mg capsule TAKE 1 CAPSULE BY MOUTH TWICE A DAY FOR 5 DAYS active Not Available Not Available No t Available triamcino lone acetonide 0.1 % topical ointment Apply by topical route to rash one to two times daily - but not on face 2013 active Not Available Not Available Not Avai lable buspirone 10 mg tablet TAKE 1 TABLET BY MOUTH EVERYDAY AT BEDTIME 07/02 completed Not Available Not Available Not Available triamcino lone acetonide 55 mcg nasal spray aerosol 2 SPRAY INTRANAS ALLY DAILY ADMINIST ER INTO EACH NOSTRIL 06/28 completed Not Available Not Available Not Available hyoscyami ne 0.125 mg sublingua l tablet TAKE 1 TABLET SUBLINGU ALLY FOUR TIMES DAILY 06/28 completed Not Available Not Available Not Available fluoxetin e 10 mg capsule TAKE 1 CAPSULE BY MOUTH EVERY DAY 2024 active Not Available Not Available Not Avai lable betametha sone dipropion ate 0.05 % topical cream APPLY TO AFFECTED AREA TWICE A DAY NEEDED FOR ITCHING 03/14 completed Not Available Not Available Not Available lidocaine HCl 2 % mucosal solution APPLY 10 ML TO THE MOUTH OR THROAT EVERY 6 (SIX) HOURS NEEDED (SORE THROAT) 06/28 completed Not Available Not Available Not Available amoxicill in 400 mg/5 mL oral suspensio n 10/15 completed Not Available Not Available Not Available Low-Ogest rel (28) 0.3 mg-30 mcg tablet Take 1 tablet every day by oral route for 28 days. 03/25 completed ordered on wrong twin Not Available Not Available Not Available ergocalci ferol (vitamin D2) 1,250 mcg (50,000 unit) capsule TAKE 1 CAPSULE EVERY WEEK BY ORAL ROUTE FOR 60 DAYS. 01/16 completed Not Available Not Available Not Available clobetaso l 0.05 % topical ointment APPLY TOPICALL Y TWICE A DAY 06/28 completed Not Available Not Available Not Available cefuroxim e axetil 500 mg tablet TAKE 1 TABLET BY MOUTH EVERY 12 HOURS 01/16 completed Not Available Not Available Not Available oxycodone -acetamin ophen 7.5 mg-325 mg tablet TAKE 1/2 TO 1 TABLET BY MOUTH EVERY 6 HOURS NEEDED FOR PIAN 03/14 completed Not Available Not Available Not Available methylpre dnisolone 4 mg tablets in a dose pack TAKE 6 TABLETS ON DAY 1 DIRECTED ON PACKAGE AND DECREASE BY 1 TAB EACH DAY FOR A TOTAL OF 6 DAYS active Not Available Not Available No t Available ondansetr on 4 mg disintegr ating tablet Take 1 tablet every 8 hours by oral route as needed. 2012 active Not Available Not Available Not Avai lable cefdinir 300 mg capsule active Not Available Not Available Not Available fluoxetin e 20 mg capsule Take 1 capsule every day by oral route for 90 days. active Not Available Not Available No t Available fluticaso ne propionat e 50 mcg/actua tion nasal spray,marcelino pension 01/09 completed Not Available Not Available Not Available sertralin e 50 mg tablet TAKE 1 TABLET BY MOUTH EVERY DAY 01/09 completed Not Available Not Available Not Available naproxen 500 mg tablet TAKE 1 TABLET BY MOUTH TWICE A DAY 03/14 completed Not Available Not Available Not Available amoxicill in 875 mg-potass ium clavulana te 125 mg tablet TAKE 1 TABLET BY MOUTH TWICE A DAY WITH FOOD 06/28 completed Not Available Not Available Not Available tobramyci n 0.3 %-dexamet hasone 0.1 % eye drops,marcelino pension INSTILL INSTILL ONE DROP IN THE RIGHT EYE FOUR TIMES DAILY 03/14 completed Not Available Not Available Not Available Denta 5000 Plus 1.1 % cream 02/05 completed Not Available Not Available Not Available DentaGel 1.1 % 01/16 completed Not Available Not Available Not Available escitalop ismael 10 mg tablet TAKE 1 TABLET BY MOUTH EVERY DAY FOR 30 DAYS 07/02 completed Not Available Not Available Not Available escitalop ismael 20 mg tablet Take 1 tablet every day by oral route for 30 days. 07/02 completed Not Available Not Available Not Available 08/23 (28) 1 mg-20 mcg (21)/75 mg (7) tablet TAKE 1 TABLET BY MOUTH EVERY DAY 08/14 completed Not Available Not Available Not Available (28) 1.5 mg-30 mcg (21)/75 mg (7) tablet TAKE 1 TABLET BY MOUTH EVERY DAY 08/14 completed Not Available Not Available Not Available tinidazol e 500 mg tablet 04/26 completed Not Available Not Available Not Available Lutera (28) 0.1 mg-20 mcg tablet TAKE 1 TABLET BY MOUTH EVERY DAY active Not Available Not Available No t Available melatonin active Not Available Not Cyn ilable Not Available Claritin 04/22 completed Not Available Not Available Not Available desvenlaf axine succinate ER 50 mg tablet,ex tended release 24 hr TAKE 1 TABLET BY MOUTH EVERY DAY active Not Available Not Available No t Available Eucrisa 2 % topical ointment APPLY 1 APPLICAT ION TOPICALL Y TWICE A DAY 03/14 completed Not Available Not Available Not Available Zepbound 5 mg/0.5 mL subcutane ous pen injector active Not Available Not Available Not Available Zepbound 2.5 mg/0.5 mL subcutane ous pen injector INJECT 0.5 ML SUBCUTAN EOUSLY WEEKLY active Not Available Not Available No t Available Vitals Date Recorded Body temperature Heart rate Respiratory rate Body height Body mass index (BMI) [Percentile] Per age and sex Body mass index (BMI) Body weight Systolic And Diastolic Provider Name and Address Organization Details Last Updated DateTime 3 98 [degF] 92 /min 16 /min 171.45 cm 82 % 25 kg/m2 63587.9 6 g 128/74 mm[Hg] Loly Bernstein [facility], 3 15:57:28 Date Recorded Body weight Body mass index (BMI) Body mass index (BMI) [Percentile] Per age and sex Body height Heart rate Respiratory rate Body temperature Systolic And Diastolic Provider Name and Address Organization Details Last Updated DateTime 4 49174.8 1 g 28.1 kg/m2 90 % 171.45 cm 84 /min 16 /min 98 [degF] 114/80 mm[Hg] Leidy Kaminski [facility] 4 14:58:53 Social History Question Answer Notes LastModified by Organizat ion Details LastModified Time Tobacco Smoking Status Never [facility]oker [facility] 12/13/2021 10:25:57 Animal Exposure? Yes Palmap Informat ion not available 12/13/2021 Are You Blind Or Do You Have Difficulty Seeing? No Information not available 12/13/2021 Concerns About Meeting Basic Needs (food, Housing, Heat, Etc)? No Information not available 12/13/2021 Are You Deaf Or Do You Have Serious Difficulty Hearing? No Information not available 12/13/2021 Are You At Moderate Or High Risk For Dental Cavities? No Information not available 12/13/2021 Does Family Ever Have Difficulty Making Ends Meet At The End Of The Month? No Information not available 12/13/2021 Have There Been Any Changes To Your Family Or Social Situation? No Information not available 12/13/2021 What Is The Fluoride Status Of Your Home? Fluoridated Information not available 12/13/2021 Are There Any Guns Present In Your Home? Yes Information not available 12/13/2021 Hard Of Hearing Or Deaf In One Or Both Ears? No Information not available 12/13/2021 What Is Your Home Situation? Both Parents Information not available 12/13/2021 Do You Use Insect Repellent Routinely? Yes Information not available 12/13/2021 Legally Blind In One Or Both Eyes? No Information not available 12/13/2021 What Was The Date Of Your Most Recent Tobacco Screening? 08/17/2018 Information not available 12/13/2021 Family Has Moved Frequently/lived With Others Due To Finances Within The Last Year? No Information not available 12/13/2021 Obese No Information no t available 12/13/2021 Overweight No Information no t available 12/13/2021 What Is Your Parents' Marital Status? Information not available 12/13/2021 Do You Have Any Pets? Yes Information not available 08/14/2022 What Is The Name Of Your School? [employer] Information not available 06/28/2024 Do You Use Your Seat Belt Or Car Seat Routinely? Yes Information not available 12/13/2021 Do You Have Any Siblings? 1 Twin Sister Information not available 12/13/2021 Do You Have Smoke And Carbon Monoxide Detectors In Your Home? Yes Information not available 06/28/2024 Are You Passively Exposed To Smoke? No Information not available 12/13/2021 Are There Any Smokers In Your House? No Information not available 06/28/2024 How Much Tobacco Do You Smoke? No Information not available 12/13/2021 Do You Participate In Social Media? Yes Information not available 12/13/2021 General Stress Level High Information not available 12/13/2021 Do You Use Sunscreen Routinely? Yes Information not available 12/13/2021 Year In School College Informatio n not available 06/28/2024 Sex: Unknown Functional Status Question Answer Note LastModified by Organizat ion Details LastModified Time What is your level of alcohol consumption? None Information not available 12/13/2021 Do you or have you ever used e-cigarettes or vape? Never used electronic cigarettes Information not available 12/13/2021 What is your exercise level? Moderate Information not available 12/13/2021 Mental Status Question Answer Note LastModified by Organization D etails LastModified Time Are you or have you been involved with bullying? No zita Information not available 12/13/2021 Family History Relationship Description Onset Age of this Age Resolved Age Notes LastModified by Organization Details LastModified Time Paternal Grandfather Diabetes mellitus previo usly record ed as diabet es (< age 50) [email or web address] Not available 04/13/2015 10:17:49 Paternal Grandmother Heart disease previo usly record ed as heart diseas e (< age 50) Not available 04/13/2015 10:17:49 Paternal Grandmother Diabetes mellitus [email or web address] Not available 2014 10:17:49 Father No current problems or disability [email or web address] Not available 01/09 10:31:46 Father Diabetes mellitus [email or web address] Not available 2020 10:35:00 Mother No current problems or disability [email or web address] Not available 01/09 10:31:46 Notes:A lot of cholesterol i ssues and colon polyps on Dad's side. Thyroid issues on Mom's side. Mom and dad both need gallbladder removed Medical History Condition Response ER or UC Visits N Asthma / Wheezing N Nasal Allergies N Frequent Headaches N Hospitalizations N ADD or ADHD N Abnormal Hearing Screen N Abnormal Screen N Broken bones N ear or hearing problems N Concerns with Hearing or Vision N Constipation N Albuterol / Nebulizer N Diabetes N Other Developmental Delay N Bedwetting N Skin problems N Frequent Ear Infections N Allergies N Sleep Problems / Snoring N Normal Screen Y Murmur / Cardiac N Normal Hearing Screen Y Serious Injuries N History of UTI N Gynecological History Statement/Question Response Menses Monthly N Age at Menarche 10 Obstetrics History GPAL:G 0 P 0 0 0 0 Immunizations Vaccine Type Date Status Note Provider Name and Address Organization Details Recorded Time Tdap 04/13/20 15 completed Not Available [facility] 08/21/2019 02:12:30 varicella 02/06/20 16 completed Not Available [facility] 08/21/2019 02:12:32 Meningococcal MCV4O 02/14/20 16 completed Not Available [facility] 08/21/2019 02:12:42 Meningococcal MCV4O 01/10/20 21 completed Loly Bernstein [place], [place] - [facility], 01/09/2021 12:07:42 HPV9 08/14/19 23 cancelled patient objection Lissy Isidro MD [address] [place] [address] [address], [place], [address], [place] [facility], 08/15/2022 14:50:18 COVID-19, mRNA, LNP-S, PF, 30 mcg/0.3 mL dose 08/05/19 22 completed Yuliana Luciano [place] [facility], 01/17/2022 11:59:55 pneumococcal conjugate PCV 7 11/08/19 05 completed [place]ul[place] [facility], 01/17/2022 11:59:56 Hib, unspecified formulation 11/08/19 05 completed [place] [facility], 01/17/2022 11:59:56 DTaP-Hep B-IPV 11/08/19 05 completed [place] [facility], 01/17/2022 11:59:55 Hep A, pediatric, unspecified formulation 05/27/20 07 completed [place] [facility], 01/17/2022 11:59:55 DTaP-Hep B-IPV 09/10/19 05 completed [place]ul[place] [facility], 01/17/2022 11:59:55 DTaP-Hep B-IPV 07/10/20 04 completed [place] [facility], 01/17/2022 11:59:55 Hep A, pediatric, unspecified formulation 06/02/20 06 completed [place] [facility], 01/17/2022 11:59:55 MMR 08/28/19 06 completed [place]ul[place] [facility], 01/17/2022 11:59:55 Hib, unspecified formulation 09/10/19 05 completed [place] [facility], 01/17/2022 11:59:55 DTaP 01/02/20 06 completed [place] [facility], 01/17/2022 11:59:55 pneumococcal conjugate PCV 7 07/10/20 04 completed [place] [facility], 01/17/2022 11:59:56 pneumococcal conjugate PCV 7 08/28/19 06 completed Yulianalorrie Luciano null, [place] - [facility], 01/17/2022 11:59:55 MMR 12/19/19 10 completed Yuliana Ankita null, [place] [facility], 01/17/2022 11:59:56 varicella 12/19/19 10 completed Yulianavineet Luciano null[place] [facility], 01/17/2022 11:59:55 Hib, unspecified formulation 08/28/19 06 completed Yulianalorrie Luciano [place] [facility], 01/17/2022 11:59:55 DTaP-IPV 12/19/19 10 completed Yulianalorrie Luciano null[place] [facility], 01/17/2022 11:59:55 pneumococcal conjugate PCV 7 09/10/19 05 completed Yuliana Luciano null, [place] [facility], 01/17/2022 11:59:56 Hib, unspecified formulation 07/10/20 04 completed Yuliana Ankita null, [place] [facility], 01/17/2022 11:59:56 Hep B, unspecified formulation 05/09/20 04 completed Yuliana Ankita null, [place] [facility], 01/17/2022 11:59:56 Past Encounters Encounter ID Performer Location Encounter Start Date Encounter Closed Date Diagnosis/Indication Diagnosis SNOMED-CT Code Diagnosis ICD10 Code Diagnosis Note [id number] Lissy Isidro [facility] [address] [place], [place] [address] [place] [address] 07/30/2010 17:24:19 07/31/2010 16:04:12 [id number] Lissy Isidro MD [facility] [address] [place] [address],[address] [place] [address] 08/07/2010 17:57:27 08/09/2010 17:26:22 [id number] Lissy Isidro MD [facility] [address] [place] [address],[address] [place] [address] 06/24/2011 14:17:34 07/01/2011 11:18:58 [id number] Lissy Isidro MD [facility] [address] [place] [address],[address] [place] [address] 10/28/2011 10:22:42 10/29/2011 12:51:46 [id number] Lissy Isidro MD [facility] [address] [place] [address] [address] 11/11/2012 09:30:20 11/16/2012 11:34:26 [id number] Lissy Isidro MD [facility] [address] [place], [place] [address] [address] 04/07/2014 10:01:37 04/08/2014 11:33:55 Well child [id number] Hypertrophic scar 16893901 [id number] Michelle Glasgow MD [facility] [address] [place], [place] [address] [address] 10/14/2014 14:22:50 10/18/2014 09:59:30 Influenza caused by Influenza B virus 34007002 [id number] Lissy Isidro MD [address] [place] [address] 04/13/2015 09:58:21 04/14/2015 10:15:10 Well child 084687079 Scoliosis deformity of spine 263415697 [id number] Lissy Isidro MD [address] [place] [address] 06/13/2015 11:32:06 06/15/2015 10:42:25 [place] [facility] [place] [id number] R55 [id number] Lissy Isidro MD [facility] [address] [place], [place] [address] [address] 10/05/2015 11:59:44 10/09/2015 12:16:51 Scoliosis deformity of spine 244468070 Q67.5 Follow-up visit 42352190 9 Z09 Muscle spa sm of cervical muscle of neck 3408928431 04 M62.838 [id number] Lissy Isidro MD [facility] [address] [place], [place] [address] [address] 12/07/2015 14:36:28 12/08/2015 12:38:48 Low back pain 075773742 M54.5 Low back pain - most likely muscle spasm in nature. No evidence for sciatica or nerve impingemen t problems at this time. Would recommend most importantl y, back exercises. Copies of exercises given to patient/pa rent. Parent also requested PT so order for that was given. RTC prn. Recommende d doing exercises until all pain is gone and to continue with them afterwards to keep pain away.Will obtain lumber sacral films to rule out spondyloli sthesis.Xr ays were negative for pathology; father informed. Muscle spasm most likely source. [id number] Lissy Isidro [facility] [address] [place] [address] 02/06/2016 09:16:40 02/09/2016 16:15:20 Well child 517812187 Z00.129 Well child - appropriat e for growth and developmen t. Anticipato ry guidance to parent. RTC in _1_ year for next routine visit. I discussed with parent the recommende d immunizati ons for the patient during the office visit today; all questions were answered and the informatio nal handout was given to the parent. Also discussed need for routine daily physical activity (at least 1 hour per day) and proper dietary habits. (Dietary informatio n on display in exam room). Vulvovaginitis 39964185 N76.0 Vulvovagin itis - nonspecifi c; most likely due to age, means of personal hygiene, and possibly bathing techniques Plan: anticipato ry guidance to caregiver, symptomati c treatment. [id number] Lissy Isidro MD [facility] [address] [place] [address] 02/14/2016 16:22:00 02/15/2016 14:57:46 Active or passive immunization 392097028 Z23 [id number] Lissy Isidro MD [facility] [address] [place] [address] 02/28/2016 16:45:34 03/01/2016 14:17:40 Vaginitis and vulvovaginitis 717025031 N77.1 10yo with ongoing vaginal itching despite diflucan and 2 courses of flagyl; some or all of her symptoms at this point likely due to sports, sweating and wearing spandex. Plan: will repeat vaginitis probe. While awaiting results, [facility] can treat symptomati luke with Vagisil. Avoid spandex if possible and continue washing with only warm water. [id number] Lissy Isidro MD [facility] [address] [place] [address] 03/12/2016 17:36:36 03/13/2016 10:38:24 Anxiety hyperventilation 52961301 F45.8 This most likely represents hyperventi lation. Anticipato ry guidance to mother. Discussed that stress can sometimes cause this - but often no etiology is ever identified . Recommende d rebreathin g (either into paper bag or cupped hands in front of mouth) to abort episode. RTC prn. [id number] Michelle Glasgow MD [facility] [address] [place] [address] 04/26/2016 14:18:38 04/29/2016 12:03:41 Acute viral pharyngitis 793910104 J02.9 Viral Pharyngiti s, day 2- symptom care, see if fever for more than 72 hours, severe symptoms, or new concerns. Call if illness lasts more than 14 days. [id number] Lissy Isidro MD [facility] [address] [place] [address] 04/30/2016 14:23:03 05/02/2016 10:45:13 Fever 372183407 R50.9 .fever - physical exam is not suggestive of an etiology - however, due to cough and fever a CXR was obtained. This was compatible with a RUL infiltrate .THere fore, the likely cause of her fever is a pneumonia - possibly either viral or mycoplasma or community acquired.W ill treat with Biaxan for 10 days.Follo w up as needed. - especially if fever persist for another few days or if cough is no better in a week. Pneumonia 999752306 J18. 9 [id number] Lissy Isidro MD [facility] [address] [place] [address] 05/06/2016 10:47:55 05/07/2016 09:21:18 Anterior chest wall pain 120724069 R07.89 Most likely secondary to strain from the excessive coughing that accompanie d her recent pneumonia. Advised symptomati c care in the form of alleve, cold to warm packs to area several times a day. PE excuse for this week. Pneumonia 124642374 J18. 9 Clinically is improving at this time. Reassuranc e to mother that the chest pain is most likely chest wall and not pleurisy. [id number] Lissy Isidro MD [facility] [address] [place] [address] 10/15/2016 10:21:15 10/17/2016 09:15:46 Acute upper respiratory infection 77467430 J06.9 Viral URI off and on for 2 weeks--Sup portive care as discussed. Mom would like to hold off on abx as long as possible so will add Flonase and continue Claritin daily. Tylenol or Motrin as needed. Call with worsening symptoms or no improvemen t in one week with adding Flonase will call in abx at that time. [id number] KUNAL CHU [facility] [address] [place] [address],[address] [address] 11/07/2016 16:58:38 11/11/2016 10:29:39 Contusion of chest 57406194 S20.20XA Secondary to direct fall on floor - but not from a significan t distance - patient fell forward. Anticipato ry guidance to parent and patient. Advised symptomati c treatment Avoid sport activities for 3 days. Follow up here on as needed basis Contusion of anterior abdominal wall 402547499 S30.1XXA Secondary to direct fall on floor - but not from a significan t distance - patient fell forward. Anticipato ry guidance to parent and patient. Advised symptomati c treatment Avoid sport activities for 3 days. Follow up here on as needed basis Pain of he ad and neck region 839354758 M54.2 Patient's neurologic al exam is normal and history is not consistant with a concussion . Reassuranc e to mother and patient. I see no need for any delay in return to sports other than that above Recommende d symptomati c treatment. [id number] Lissy Isidro MD [facility] [address] [place] [address],[address] [address] 02/03/2017 14:05:03 02/06/2017 14:51:56 Idiopathic scoliosis 053421653 M41.119 will do one final xray since patient has started menarche since lst films in 10/17. Curve looks a little more prominent Closed injury of head 45 51199862 06 S09.90XA Overall, patient's exam and history are reassuring If there was a concussion , it was minimal. Patient is fairly asymptomat ic; at this time I feel that she can return to regular activities . Mother knows what to look for in terms of worsening symptoms [id number] LYNETTE GARCIA APRN-GEE [facility] [address] [place] [address],[address] [address] 03/14/2017 15:57:22 04/03/2017 15:25:34 Well child 312461031 Z00.129 Well adolescent - appropriat e for growth and developmen t. Anticipato ry guidance was given to patient/pa RTC in 1 year for next routine visit. I discussed with the parent the recommende d immunizati ons for the patient today; all questions were answered and the informatio nal handout was given. Also encouraged routine physical activity on a daily basis (at least 1 hour minimum per day). Proper dietary habits were discussed. Compared spinal films 0.6 degree difference noted over past year. No clinically significan t. [id number] CASIMIRO LEES [facility] [address] [place] [address],[address] [address] 09/02/2017 10:21:44 09/03/2017 10:56:32 Viral disease 57067093 B34.9 Flu-like viral illness--T ylenol or Motrin as needed. Supportive care as discussed. Encourage rest and fluids. Call office is fever > 5 days or worsening symptoms. Mom will call if cough worsens and shortness of breath, will send for outpatient chest x-ray. [id number] Lissy Isidro MD [facility] [address] [place] [address],[address] [phone] 3 04/22/2018 11:12:32 04/30/2018 13:49:14 Well child [id number] Z00.129 Well adolescent - appropriat e for growth and developmen t. Anticipato ry guidance was given to patient/tiffany VASQUEZ in 1 year for next routine visit. I discussed with the parent the recommende d immunizati ons for the patient today; all questions were answered and the informatio nal handout was given. Also encouraged routine physical activity on a daily basis (at least 1 hour minimum per day). Proper dietary habits were discussed. Mother declined HPV vaccine at this time. [id number] Lissy Isidro MD [facility] [address] [place] [address],[address] [phone] 3 08/17/2018 11:25:08 08/18/2018 12:01:08 Dysmenorrhea [id number] N94.6 Dysmenorrh ea - anticipato ry guidance to mother and patient. - typical age at which this starts - initial treatment is ibuprofen at therapeuti c dose, either at the start of the period or starting a day or two ahead of time -if no response to ibuprofen, then oral contracept lavern would be the next agent to try if family wishes to do so. - will normally last for several years at least If no improvemen t in several months, call a d we will reassess I feel that the patient has some significan t issues that can be remedied by the use of missy OCPs. mother was very open to this recommenda tion. Will do a trila of 3 months and wll then follow up in 3 -4 months. [id number] Lissy Isidro MD [facility] [address] [place] [address],[address] [phone] 3 09/15/2018 16:46:35 09/22/2018 10:19:32 Lethargy [id number] R53.83 I explained to dad and patient that she has no good evidence on exam of mono. We can check viral titers to confirm though. other possibilit y is that of a generalize d non specific viral illness. I do not see anything at this time that warrants more extenesive evauation Recommende d symptomati c treatment/ Will contact family with lab results/ Laboratory test result abnormal [id number] R89.9 [id number] Lissy Isidro MD [facility] [address] [place] [address] [phone] 3 02/15/2019 17:29:49 02/17/2019 16:56:24 Generalized anxiety disorder [id number] F41.1 Anxiety disorder - based upon clinical/h istorical informatio n from patient (and family). Condition stable. I recommende d an anti-anxie ty medication ; in addition, I feel that counseling would be of continued benefit in the overall treatment plan. Risks and benefits of the medication were discussed. Patient/pa rent questions and concerns addressed. Followup in 1 month; sooner with any problems Obsessive- compulsive disorder [id number] F42.9 Ther sertraline that patient is starting will help with this as well. [id number] Lissy Isidro MD [facility] [address] [place] [phone] 3 03/03/2019 11:56:52 03/04/2019 10:10:41 Well child [id number] Z00.129 Well adolescent - appropriat e for growth and developmen t. Anticipato ry guidance was given to patient/pa zeeshant. RTC in 1 year for next routine visit. I discussed with the parent the recommende d immunizati ons for the patient today; all questions were answered and the informatio nal handout was given. Also encouraged routine physical activity on a daily basis (at least 1 hour minimum per day). Proper dietary habits were discussed. Mother declined HPV vaccine at this time. Vitamin D deficiency [id number] E55.9 [id number] Lissy Isidro MD [facility] [address] [place] [address] [phone] 3 04/01/2019 09:08:17 04/07/2019 17:15:07 Mixed anxiety and depressive disorder [id number] F41.8 Followup on anxiety and depression - there has been significan t improvemen t in the past month since the medication was started. Per history of patient and parent, there has been a marked decrease in the prior symptoms. Questionna ires bear this out as well. No side effects Plan: continue same dosage of medication (patient and parent totally concur) RTC 3 months Call sooner with any problems Strain of tendon of left ankle [id number] S96.912A Ankle strain - Plan: ice pack to area for 20 - 30 minutes TID - QID, elevation when possible while swelling is still present, ibuprofen (or tylenol) as needed for pain. Limit activity to what has to be done - nothing extra until area has healed. Rehab exercises (handout given) to be done regularly until patient can stand on toes without pain. Call if pain not improving in 5 -7 days. [id number] Lissy Isidro MD [facility] [address] [place] [address] [phone] 3 07/12/2019 16:14:27 07/15/2019 15:08:35 Mixed anxiety and depressive disorder [id number] F41.8 Followup on anxiety and depression - there has been significan t improvemen t in the past month since the medication was started. Per history of patient and parent, there has been a marked decrease in the prior symptoms. Questionna ires bear this out as well. No side effects Plan: Increase dosage of medication to 100 mg daily of zoloft (at request of patient and parent ) RTC 3 months Call sooner with any problems [id number] Lissy Isidro MD [facility] [address] [place] [address] [phone] 3 12/06/2019 16:09:50 12/07/2019 11:54:27 Mixed anxiety and depressive disorder 916008247 F41.8 Followup on anxiety and depression - there has been continued improvemen t in the past months. Per history of patient and parent, there has been a marked decrease in the prior symptoms. Questionna ires bear this out as well. No side effects Plan: Maintain dosage of medication at 100 mg daily of zoloft (at request of patient and parent ) RTC6 months Call sooner with any problems [id number] Lissy Isidro MD [facility] [address] [place] [address] [phone] 3 08/01/2020 14:59:06 08/07/2020 10:55:40 Anxiety disorder [id number] F41.9 Followup on anxiety and depression - there has been significan t and sustained improvemen t in the past months since the medication was started. Per history of patient and parent, there has been a marked decrease in the prior symptoms. No side effects Plan: continue same dosage of medication (patient and parent totally concur) RTC 4 months Call sooner with any problems Contracept ion care management [id number] Z30.9 [id number] Lissy Isidro MD [facility] [address] [place] [address] [phone] 3 01/09/2021 10:31:44 01/10/2021 11:52:35 Well child [id number] Z00.129 Well adolescent - appropriat e for growth and developmen t. Anticipato ry guidance was given to patient/pa zeeshant. RTC in 1 year for next routine visit. I discussed with the parent the recommende d immunizati ons for the patient today; all questions were answered and the informatio nal handout was given. Also encouraged routine physical activity on a daily basis (at least 1 hour minimum per day). Proper dietary habits were discussed. Mother declined HPV vaccine at this time. to follow recommende d screening services for this age group, will obtain GC and chlamydia screenings Laboratory test result abnormal [id number] R89.9 to follow recommende d screening services for this age group has been anemic in the past and has significan tly low Vitamin D levels will recheck today Mixed anxi ety and depressive disorder 585843086 F41.8 Followup on anxiety and depression - there has been continued improvemen t in the past months. Per history of patient and parent, there has been a marked decrease in the prior symptoms. Questionna ires bear this out as well. No side effects Plan: Maintain dosage of medication at 100 mg daily of zoloft (at request of patient and parent ) RTC6 months Call sooner with any problems Contracept ion care management [id number] Z30.9 periods are regular at this point and without any problems [id number] Lissy Isidro MD [facility] [address] [place] [address],[address] [phone] 3 01/31/2021 16:43:07 02/01/2021 14:49:50 Anxiety disorder 821674676 F41.9 Followup on anxiety and depression - there has been significan t and sustained improvemen t in the past months since the medication was started. Per history of patient and parent, there has been a marked decrease in the prior symptoms. Mother feels that even though patient still gets anxious at times, she can always get back to baseline. Therefore, they both agree that they do not need an increase in med at all. No side effects Plan: continue same dosage of medication (patient and parent totally concur) RTC 6 months Call sooner with any problems Will so some literature search on using buspar for aid in [facility]ism [facility] [id number] Z30.9 periods are regular at this point and without any problems [id number] Lissy Isidro MD [facility] [address] [facility],[address] [phone] 3 12/13/2021 09:56:52 12/14/2021 10:54:49 Mixed anxiety and depressive disorder [id number] F41.8 Anxiety and epression followup - overall pt is still doing OK but feels that she is not getting as much of an effect from the medication as before. Still functionin g fairly normally during the day. No side effects from medication . IS seeing counsleor weekly -Patient overall has lost interest in school - fortunatel y is still doing well but it is becoming a struggle. Plan: increase dose of medication to 150 mg of sertraline daily. RTC 2 months. Call sooner with any problems. I also suggested that they could increase the nightly buspar dose to 10 mg for aid with her teeth clenching. Her oral surgeon had given her muscle relaxants to use - but parents are not comfortabl e with daughter taking them and driving , going to school, etc [id number] Lissy Isidro MD [facility] [address] [facility],[address] [phone] 3 01/17/2022 11:55:22 01/21/2022 11:38:31 Mixed anxiety and depressive disorder [id number] F41.8 Patient had responded initially to but as of late and even with increased dosages, the symptoms of anxiety/de pression are starting to reappear and increase in frequency. I do not feel that going up higher on the dosage is going to be of any benefit. I have recommende d that we start weaning this particular SSRI and start on a new one at this time. Patient and parent are in agreement With starting a new med, I will have patient return for visit in 1 month.Will wean down on sertraline to 100 mg for 10 days, followed by 10 days of 50 mg per day and then 10 days of 25 mg per day. Will start fluoxetine , 10 mg daily for one month. [id number] Lissy Isidro MD [facility] [address] [place] [address],[address] [phone] 3 03/14/2022 08:57:06 03/15/2022 15:18:25 Mixed anxiety and depressive disorder [id number] F41.8 Patient and parent do not feel that she has had any response to the fluoxetine . - I feel that she has been on it long enough to make some difference if it were going to work.I suggested that we DC the fluoxetine and start another SSRI (lexapro). Mother states that one of her sisters takes paxil and it has been beneficial for her.We discussed potential side effects (minimal) of lexapro; the fact that she does npot need to wean from the prozac and that we can start the lexapro immediatel y.They are in agreement with switch of meds [id number] Lissy Isidro MD [facility] [address] [place] [address],[address] [phone] 3 07/02/2022 17:19:36 07/04/2022 16:33:28 Mixed anxiety and depressive disorder 904491100 F41.8 Followup on anxiety and depression - there has been significan t improvemen t in the past months since the medication was increased. Per history of patient and parent, there has been a marked decrease in the prior symptoms. No side effects Plan: continue same dosage of medication (patient and parent totally concur) RTC 2 months Call sooner with any problems [id number] Lissy Isidro MD [facility] [address] [place] [address],[address] [phone] 3 08/14/2022 15:47:52 08/15/2022 15:23:15 Well child [id number] Z00.129 Well adolescent - appropriat e for growth and developmen t. Anticipato ry guidance was given to patient/tiffany riley. RTC in 1 year for next routine visit. I discussed with the parent the recommende d immunizati ons for the patient today; all questions were answered and the informatio nal handout was given. Also encouraged routine physical activity on a daily basis (at least 1 hour minimum per day). Proper dietary habits were discussed. .w recommende d screening services for this age group, will obtain GC and chlamydia screenings recommende d receiving Bexsero prior to leaving for college - will RTC for this Mixed anxi ety and depressive disorder [id number] F41.8 doing well at this point in time on her dosage of medication [id number] Lissy Isidro MD [facility] [address] [place] [address] [phone] 3 01/16/2023 11:17:51 01/17/2023 11:48:14 Mixed anxiety and depressive disorder 211920910 F41.8 At current dose of 30 mg of fluoxetine , she is not well controlled . I feel that adding an adjunct medication to her current fluoxetine may be helpful. I suggested venlafaxin e, ER 75 mg to start. She is to follow up in one month so we can see where her condition is then - may very well take it up to 150 mg daily. May also consider increasing her dose of fluoxetine up as well - but I wasnt to do it after we get the venlafaxin e on board. Discussed minimal side effects that she should expect from venlafaxin e. [id number] Lissy Isidro MD [facility] [address] [place] [address] [phone] 3 06/05/2023 10:57:11 06/09/2023 17:45:09 Mixed anxiety and depressive disorder 544503570 F41.8 Followup on anxiety and depression - there has been significan t improvemen t in the past months since the medication dosage was increased. Per history of patient, there has been a marked decrease in the prior symptoms. Patient feels that she is doing so much better than a year ago.No side effectsPla n: continue same dosage of medication (patient concurs)RT C 4 monthsCall sooner with any problems [id number] Michelle Glasgow MD [facility] [address] [place] [address],[address] [phone] 3 06/28/2024 14:54:49 06/28/2024 15:41:20 Adult health examination [id number] Z00.00 Well 19 yo - elevated BMI. Anticipato ry guidance including advice on nutrition and exercise given to family. RTC 1 yr. UTD on vaccines; all questions were answered and the informatio nal handout(s) was/were given. Sees dentist.De clined HPV, flu, and bexsero vaccines. May leave detailed message on voice mail. Body mass index 25-29 - overweight 014320461 Z68.28 Overweight - counseled patient and parent about weight and need for control/lo ss of weight. Plan: Exercise for at least 30 minutes at least 5 days a week and improved dietary habits - smaller portions and healthier choices. Entire family needs to provide support and cooperatio n with weight issue. Dietary ma nagement surveillance [id number] Z71.3 Counseling 152901502 Z71 .82 Mixed anxi ety and depressive disorder 115541138 F41.8 Sarah Oh via telehealth once every week. Recommende d f/u for anx/depres get appt in one month. Dysmenorrhea 783772999 N 94.6 Started due to heaviness of periods. Well controlled and regular. No concerns. Health Concerns Section Related Observation LastModified by Organization Detai ls LastModified Time None Recorded Concern Status LastModified by Organization Details LastModified Time mixed anxiety and depressive disorder Active [facility] PATCH Not Available 3 09:02:47 Advance Directives Directive None Recorded Payers Insurance Date Sequence Insurance Name Policy Number Policy Edmonds Covered Member ID Edmonds Member ID Guarantor Name 03/19/2014 1 [employer] (HMO) [id number] Mario Higinio [id number] Mario Higinio 04/06/2014 1 [employer] (POS) [id number] Mario Higinio [id number] Mario Higinio 06/28/2024 1 [employer] (POS) [id number] Mario B Higinio [id number] Mario Higinio Notes Date Note Type Note Provider Name and Address Organization Details Recorded Time 2 text/html HistorianReported bypatient.History reported by:[facility] Medication ManagementReported bypatient.Medications:ta matthew medications as directed; no side effects from medication Associated Symptoms:no dizziness; no rash; no chest pain; no shortness of breath; no edema; no lightheadedness; no sensory disturbances; no palpitations; no motor disturbances Lifestyle habits:regular exercise General overall feeling:feeling as well as can be expectedNotes:currently taking 30 mg daily of fluoxetine - dosage was increased 2 weeks ago - patient feels that she is seeing some improvementsleeping well at nightstill doing well as a senior - but is ready to be donegoing to [employer] next year for collegeisin extracurricular activities at school and has parttime jobgoes out with friends. Lissy Isidro MD [address] [place] [address], [phone], [facility], 07/02/2022 19:45:47 3 text/html HistorianReported bypatient.History reported by:Patient[facility] Medication ManagementReported bypatient.Medications: matthew medications as directed (30 mg qd); no side effects from medication Associated Symptoms:no dizziness; no rash; no chest pain; no shortness of breath; no edema; no lightheadedness; no sensory disturbances; no palpitations; no motor disturbances Lifestyle habits:regular exercise General overall feeling:Counselor is wanting the dosage increased of the prozac or wellbutrin added. Pt states her depression symptoms have increased. Reports being unhappy and unmotivated. No suicidal thoughts or actions. Reports anxiety waxes and wanes.Notes:Past 6 months have been quite underproductive - she did the minimal to get by as a senior. Still did OK with grades. 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 Her work effort is good - not missing any workIf she is not working or doing something with her family, she is sleeping. When she does things with her family, she does not get happiness like she used to from doing it in the past.She denies having any suicidal thoughts.She is excited about going to college - but does have some anxiety over it.She states that she gets waves of anxiety - 3-4 times a week that lasts for a few hours. These waves can be caused by different things.She did not fill out any screening tools today. Lissy Isidro MD [address] [facility] [address], [address], [facility], 01/16/2023 14:40:01 3 text/html HistorianReported bypatient.History reported by:PatientPsych Medication ManagementReported bypatient.[facility] [place] [facility] as directed; no side effects from medication Associated Symptoms:no dizziness; no rash; no chest pain; no shortness of breath; no edema; no lightheadedness; no sensory disturbances; no palpitations; no motor disturbances Lifestyle habits:regular exercise General overall feeling:feeling as well as can be expectedNotes:currently is on fluoxetine, 30 mg dailynot taking any ativan for extra anxietuis in freshman year at [employer] - doing well academically, has good roommate; no homesicknesssleeping well at nightfeels that current dose of med is working very well. Lissy Isidro MD [address], [phone], [facility], 06/06/2023 13:26:59 4 text/html HistorianReported bypatient.History reported by:Patient LUIS CARLOS GAVIRIA 4 [facility] [address], [place], [address], [facility], 06/28/2024 15:34:38 OBGyn Episode No OBEpisode recorded.
--- OUTSIDE RECORDS SUMMARY | 2025-02-03 07:48 | XMS_ITS | Referral Summary ---
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
--- OUTSIDE RECORDS SUMMARY | 2025-02-03 07:49 | XMS_ITS ---
Author Organization [facility] Address [address] [facility] [place] [address] Care Team Providers Care Manager Medicare Marketing Name Role Phone Racquel Roth Rupert [phone] REASON FOR VISIT 4 week f/u chase Encounters Encounter Location Date Provider Diagnosis [facility] - Racquel Roth [address] [place] [address] 08/20/2024 Racquel Roth Plan Of Treatment No Information Progress Notes * Demetrius LOMASOB:2005 (19 yo F)Acc No.[id number]:08/20/2024 Progress Notes Patient: Colt HOWELL Provider: Cris Roth MD :2005 A ge:19 Y S ex:Female Date:08/20/2024 Address:[facility] [address] [id number] Subjective: * Chief Complaints: * 1 . 4 week f/u chase. * Medical History: Objective: * Vitals: Assessment: Plan: * Treatment: * Billing Information: * Visit Code: * Procedure Codes: * Electronic signature of Luis Roth MD on 02/03/2025 at 07:48 AM CDT Sign off status: Pending * Provider: Cris Roth MD Date: 08/20/2024 Generated for Juju busby/Lauryn/eTransmitting on: 0 02/03/2025 07:48 AM CDT
--- NOTE | 2025-03-24 13:08 | P.PCNPFT_ITS ---
PFT Procedure Performed PFT Procedure Performed Spirometry with Pre/Post Bronchodilator Plethysmography (Lung Vol) Diffusing Cap (DLCO) Flow Vol Loop PFT Interpretation DOS: 02/03/2025 REQUESTING: Petey Rodas MD REASON FOR TESTING: chronic cough PULMONARY FUNCTION TESTS Results are reliable and reproducible. Repeatability of spirometry FEV1 maneuver pre and post bronchodilator is Grade A. David: GLI 2012 reference equations were used. Spirometry: The pre-bronchodilator FEV1 is 3.00 L, 79%, decreased. The pre- bronchodilator FVC is 4.27 L, 98%, normal. The FEV1/FVC ratio is 70%, decreased, consistent with airflow obstruction. After bronchodilator, the FEV1 is 3.31 L, 87%, +10%. After bronchodilator, the FVC is 4.31 L, 99%, +1%. The FEV1/FVC ratio is 77%, normal. Lung volumes: The total lung capacity is S 5.18 L, 91%, normal. The FRC is 2.85 L, 92%, normal. The residual volume is 0.91 L, 66%, normal. The RV/TLC is 18%, normal. Airway resistance is increased. Diffusion: DLCO is 26.1, 94%, normal. The DLCO/VA is 5.26, 108%, normal. Flow volume loop: The flow volume loop shows a normal pattern. IMPRESSION: This study shows a mild obstructive ventilatory impairment with a non-statistically significant response to bronchodilator, normal lung volumes, and normal diffusion. Lack of response to bronchodilator should not preclude use if clinically indicated. There are no prior studies for comparison. Brionna Solis MD
== END 2025-02-03 07:46 | disposition home or self-care (01) ==
PROVIDERS: PCP Internal Medicine; Visit Provider Internal Medicine
DX: R05.3 Chronic cough (principal)
CPT/HCPCS: 94060; 94726; 94729

== ENCOUNTER 2025-07-01 14:18 | Outpatient (CLI) | payer OTHER, SELFPAY ==
--- NOTE | ~2025-07-01 | XR_ITS ---
EXAMINATION: XR hip BI wo pelvis, 07/01/2025 14:25 HORSE TRAINER HISTORY: M25.559 - Pain in unspecified hip COMPARISON: No comparisons available. Findings: No acute fracture or malalignment. No significant degenerative changes. Soft tissues unremarkable. Impression: No acute fracture or malalignment. Reviewed, dictated and finalized at location P. E TRAINER Impression: No acute fracture or malalignment.
== END 2025-07-01 14:19 | disposition home or self-care (01) ==
PROVIDERS: PCP Internal Medicine; Visit Provider Internal Medicine
DX: M25.551 Pain in right hip (principal); M25.552 Pain in left hip; G89.29 Other chronic pain
CPT/HCPCS: 73521